=== PATIENT | male | born 1975 | race Caucasian/White ===

== ENCOUNTER 2016-12-18 14:22 | Outpatient (CLI) ==
[2016-09-15 21:59] VITALS: BMI 31.4
[2016-12-18 14:43] LABS: HEMOGLOBIN 11.9 g/dl (14.0-18.0); MEAN CORPUSCULAR HEMOGLOBIN 18.5 pg (27.0-31.0); MEAN CORPUSCULAR HGB CONC 32.2 (31.8-35.4); MEAN CORPUSCULAR VOLUME 57.5 fl (80.0-94.0); RED BLOOD COUNT 6.44 10^6/ul (4.70-6.10); WHITE BLOOD COUNT 12.59 K/ul (4.2-10.2)
[2016-12-18 15:13] LABS: ANION GAP 14.1; BUN/CREATININE RATIO 7.01; CALCIUM 9.2 mg/dL (8.2-10.2); CREATININE 1.14 mg/dL (0.60-1.10); POTASSIUM 4.1 mmol/L (3.5-5.1)
== END 2016-12-18 14:23 | disposition home or self-care (01) ==
LOC: LAB 14:22
DX: R19.7 Diarrhea, unspecified (principal)
CPT/HCPCS: 36415; 80048; 85008; 85025; 85027; 87493

== ENCOUNTER 2017-01-11 13:21 | Outpatient (CLI) ==
[2016-09-15 21:59] VITALS: BMI 31.4
== END 2017-01-11 13:22 | disposition home or self-care (01) ==
LOC: LAB 13:21
PROVIDERS: ATTEND Family Medicine
DX: B96.89 Other specified bacterial agents as the cause of diseases classified elsewhere (principal)
CPT/HCPCS: 87493

== ENCOUNTER 2017-04-06 07:03 | Outpatient (CLI) ==
[2016-09-15 21:59] VITALS: BMI 31.4
[2017-04-06 07:55] LABS: CREATININE 0.87 mg/dL (0.60-1.10)
--- NOTE | 2017-04-06 09:24 | CT ---
EXAM: CT of the abdomen pelvis with contrast History: Abdominal pain, history of appendix cancer, left groin pain. Technique: Multiplanar CT images through the abdomen and pelvis were obtained following administrat ion of IV contrast Findings: Low lung bases are free of consolidation or nodule. No acute osseous abnormalities. Postsurgical changes seen within the right abdomen. There are a few vague areas of low attenuation s een within the liver. Question gallbladder wall thickening. No bladder wall thickening. Adrenal gl ands are unremarkable. No focal pancreatic lesions. No splenic lesions. A few small retroperitonea l lymph nodes but not enlarged by size criteria. Prostate is not enlarged. No perirectal inflammat ion. There is mild wall thickening of the colon with adjacent hyperemia. Mild colonic diverticulosi s. Impression: 1. Probable mild colitis. No bowel obstruction. 2. Possible gallbladder wall thickening. 3. Question a few small liver lesions. Given the history of appendiceal cancer would follow up wit h dedicated liver MRI protocol. 4. Postsurgical changes in the right abdomen.
== END 2017-04-06 07:04 | disposition home or self-care (01) ==
LOC: RAD 07:03
PROVIDERS: ATTEND Internal Medicine Hematology & Oncology
DX: R10.9 Unspecified abdominal pain (principal)
CPT/HCPCS: 36415; 82565